=== PATIENT | female | born 1995 | race Caucasian/White ===

== ENCOUNTER 2016-10-01 17:26 | Emergency (ER) | payer SELFPAY ==
[~2016-10-01 17:26] MED LIST: BACLOFEN10 MG PO; DEPAKOTE ER250 MG PO; HYDROCODON-ACE1 EAC7 PO; HYDROXYZINE HCL50 M1 PO; LITHIUM CARBON150 MG PO; LOW-OGESTREL1 TAB PO; MILK OF MA400 MG/5 M PO; MOTRIN600 MG PO; MOTRIN800 MG PO; NAPROXEN500 MG PO; NO MEDICATIONS; NORCO 5/325 TAB1 TAB PO; NORCO 5/3251 TA2 PO; NORETHINDRONE AC5 MG PO; OLANZAPINE5 MG PO; PAMPRIN MULTI-1 EACH PO; PROTONIX40 M1 PO; PROZAC20 M3 PO; REMERON15 MG PO; XANAX0.25 MG PO; [UNRECOGNIZED DRUG - REMARK]; birth controll
== END 2016-10-01 17:54 | disposition left against medical advice (07) ==
LOC: EDMED 17:26
DX: Z53.21 Procedure and treatment not carried out due to patient leaving prior to being seen by health care provider (principal)